=== PATIENT | female | born 1960 | race Caucasian/White ===

== ENCOUNTER 2016-11-30 18:51 | Emergency (ER) | payer BC ==
[~2016-11-30] VITALS: Ht 152.4 cm; Wt 62.0 kg
[~2016-11-30 18:51] MED LIST: ATOR10TA15 PO; CALTCHW4 CHEW; CLAR10CA3 PO; LEXA10TA PO; METF500T PO; MINO50CA PO; MULTTAB24 PO
[2016-11-30 19:00] VITALS: BP 151/93; PULSE 90; RESP 16; TEMP 98.4; O2SAT 96
[2016-11-30] MEDS ORDERED: SODIUM CHLOR 0.9% 1000 ML INJ 1,000 ML IV SCH (22:25)
[2016-11-30] MEDS ORDERED: SODIUM CHLORIDE 0.9% FLUSH 10 ML FLUSH IV FLUSH PRN (22:30)
[2016-11-30 22:32] VITALS: BP 151/93; PULSE 90; RESP 16; TEMP 98.4; O2SAT 96
--- NOTE | 2016-11-30 22:32 | PD ---
HPI Chief Complaint: Abdominal Pain Time Seen by Provider: 22:25 Travel History International Travel<30 days: No Contact w/Intl Traveler<30days: No Traveled to known affect area: No History of Present Illness HPI The patient is a 56-year-old female that complains of diffuse abdominal pain for 3 weeks. For the past week she has noted abdominal distention. She denies any nausea, vomiting, fever. She went to an urgent care center today and they told her to go the emergency room and get a CAT scan. She has a history of metformin controlled diabetes. The patient states her last bowel movement was normal and about 20 minutes ago while she was in the waiting room. She does not drink alcohol. PFSH Past Medical History Arthritis: Yes (OSTEOARTHRITIS) Depression: Yes Cancer: Yes (SKIN ON NOSE BASAL-MOHS SURGERY) Cardiovascular Problems: No High Cholesterol: Yes Diabetes: Yes (TYPE 2) Diminished Hearing: No Endocrine: No Genitourinary: No Hepatitis: No Hiatal Hernia: No Immune Disorder: No Musculoskeletal: No Neurologic: No Psychiatric: Yes (DEPRESSION) Reproductive: No Respiratory: No Immunizations Current: Yes Thyroid Disease: No Past Surgical History Abdominal Surgery: Yes ([place] WITH OOPHORECTOMY ONLY-1999) AICD: No Cardiac Surgery: No Ear Surgery: Yes (LEFT EAR GRAPH-1996) Endocrine Surgery: No Eye Surgery: No Genitourinary Surgery: No Gynecologic Surgery: Yes (HYSTERECTOMY) Hysterectomy: Yes (PARTIAL) Joint Replacement: No Oral Surgery: No Pacemaker: No Thoracic Surgery: No Other Surgery: Yes (HERNIA REPAIR INFANT) Social History Alcohol Use: No Tobacco Use: No (NEVER) Substance Use: No Allergies-Medications (Allergen,Severity, Reaction): Coded Allergies: No Known Allergies (Verified , 11/30/16) Reported Meds & Prescriptions Reported Meds & Active Scripts Active Reported Minocycline (Minocycline HCl) 50 Mg Cap 50 Mg PO BID Atorvastatin (Atorvastatin Calcium) 10 Mg Tab 10 Mg PO HS Caltrate 600+D Soft Chews (Calcium Carbonate-Cholecalciferol) 600-800 Mg-Unit Chew 1 Tab CHEW Lexapro (Escitalopram Oxalate) 10 Mg Tab 10 Mg PO DAILY Claritin (Loratadine) 10 Mg Cap 10 Mg PO DAILY Metformin (Metformin HCl) 500 Mg Tab 500 Mg PO BIDPC With meals Review of Systems Except as stated in HPI: all other systems reviewed are Neg Physical Exam Narrative GENERAL: The patient is alert, oriented 3 in minimal apparent distress with her abdominal discomfort. Her vital signs show blood pressure 151/93 but are otherwise normal. She appears well-hydrated. SKIN: Focused skin assessment warm/dry. No skin rash is noted. HEAD: Atraumatic. Normocephalic. EYES: Pupils equal and round. No scleral icterus. No injection or drainage. ENT: No nasal bleeding or discharge. Mucous membranes pink and moist. NECK: Trachea midline. No JVD. CARDIOVASCULAR: Regular rate and rhythm. No murmur appreciated. RESPIRATORY: No accessory muscle use. Clear to auscultation. Breath sounds equal bilaterally. GASTROINTESTINAL: Abdomen soft, non-tender, slightly distended. Hepatic and splenic margins not palpable. No guarding or rebound is present. MUSCULOSKELETAL: No obvious deformities. No clubbing. No cyanosis. No edema. NEUROLOGICAL: Awake and alert. No obvious cranial nerve deficits. Motor grossly within normal limits. Normal speech. PSYCHIATRIC: Appropriate mood and affect; insight and judgment normal. Data Data Last Documented VS Vital Signs Date Time Temp Pulse Resp B/P Pulse Ox O2 Delivery O2 Flow Rate FiO2 12/01/16 00:30 92 18 163/73 99 Room Air 11/30/16 22:32 98.4 Orders Complete Blood Count With Diff (11/30/16 22:25) Comprehensive Metabolic Panel (11/30/16 22:25) Lipase (11/30/16 22:25) Urinalysis - C+S If Indicated (11/30/16 22:25) Iv Access Insert/Monitor (11/30/16 22:25) Ecg Monitoring (11/30/16 22:25) Oximetry (11/30/16 22:25) Sodium Chlor 0.9% 1000 Ml Inj (Ns 1000 M (11/30/16 22:25) Sodium Chloride 0.9% Flush (Ns Flush) (11/30/16 22:30) Oral Contrast - Adult (11/30/16 22:43) Diatrizoate Liq ( Gastrobessy Liq) (11/30/16 22:57) Ondansetron Inj (Zofran Inj) (12/01/16 00:00) Ct Abd/Pel W Iv Contrast(Rout) (12/01/16 22:25) Iohexol 350 Inj (Omnipaque 350 Inj) (12/01/16 00:17) Labs Laboratory Tests Test 11/30/16 11/30/16 22:40 23:40 White Blood Count 6.1 TH/MM3 Red Blood Count 4.79 MIL/MM3 Hemoglobin 14.0 GM/DL Hematocrit 40.5 % Mean Corpuscular Volume 84.5 FL Mean Corpuscular Hemoglobin 29.3 PG Mean Corpuscular Hemoglobin 34.7 % Concent Red Cell Distribution Width 12.4 % Platelet Count 196 TH/MM3 Mean Platelet Volume 8.5 FL Neutrophils (%) (Auto) 68.9 % Lymphocytes (%) (Auto) 21.2 % Monocytes (%) (Auto) 7.3 % Eosinophils (%) (Auto) 1.8 % Basophils (%) (Auto) 0.8 % Neutrophils # (Auto) 4.3 TH/MM3 Lymphocytes # (Auto) 1.3 TH/MM3 Monocytes # (Auto) 0.4 TH/MM3 Eosinophils # (Auto) 0.1 TH/MM3 Basophils # (Auto) 0.0 TH/MM3 CBC Comment DIFF FINAL Differential Comment Sodium Level 142 MEQ/L Potassium Level 3.8 MEQ/L Chloride Level 107 MEQ/L Carbon Dioxide Level 25.6 MEQ/L Anion Gap 9 MEQ/L Blood Urea Nitrogen 20 MG/DL Creatinine 0.78 MG/DL Estimat Glomerular Filtration 76 ML/MIN Rate Random Glucose 256 MG/DL Calcium Level 9.0 MG/DL Total Bilirubin 0.3 MG/DL Aspartate Amino Transf 64 U/L (AST/SGOT) Alanine Aminotransferase 112 U/L (ALT/SGPT) Alkaline Phosphatase 115 U/L Total Protein 6.9 GM/DL Albumin 3.6 GM/DL Lipase 293 U/L Urine Color YELLOW Urine Turbidity CLEAR Urine pH 6.5 Urine Specific [place] 1.012 Urine Protein NEG mg/dL Urine Glucose (UA) 500 mg/dL Urine Ketones NEG mg/dL Urine Occult Blood NEG Urine Nitrite NEG Urine Bilirubin NEG Urine Leukocyte Esterase NEG Urine WBC 3-5 /hpf Urine Squamous Epithelial 6-8 /hpf Cells Urine Amorphous Sediment FEW Urine Bacteria OCC /hpf Urine Hyaline Casts 3-5 /lpf Urine Mucus OCC /lpf Microscopic Urinalysis Comment CULT NOT INDICATED MDM Medical Decision Making Medical Screen Exam Complete: Yes Emergency Medical Condition: Yes Medical Record Reviewed: Yes Interpretation(s) The urinalysis shows 500 glucose but is otherwise unremarkable and culture is not indicated. The complete metabolic profile shows a BUN of 20, glucose 256, GFR of 76, GOT of 64, GPT of 112 but is otherwise normal. The lipase is normal. The CT abdomen/pelvis shows no acute findings, fatty liver, hepatosplenomegaly and previous ventral hernia repair. The CBC is normal. Differential Diagnosis Small bowel obstruction, ileus, electrolyte disorder, ovarian cysts, intestinal tumor Narrative Course The patient has abdominal pain etiology undetermined. She has no fever, no nausea, no vomiting, no diarrhea but she does have some hepatosplenomegaly. For this reason I will recommend [id number] Motrin rather than Tylenol. She needs to follow-up with her primary care physician as soon as possible. She is given the results of her blood work/imaging/urine results. Diagnosis Primary Impression: Abdominal pain of unknown etiology Additional Instructions: As we discussed, take [id number] Motrin for the pain. Follow-up with your primary care physician next week. Med/Other Pt SpecificInfo: No Change to Meds Disposition: 01 DISCHARGE HOME Condition: Stable Venkatesh Cavanaugh MD Nov 30, 2016 22:32
[2016-11-30 22:40] VITALS: BP 184/89; PULSE 90; RESP 18; O2SAT 100
[2016-11-30 22:56] LABS: AUTOMATED NEUTROPHIL # 4.3 TH/MM3 (1.8-7.7); BASOPHIL % 0.8 % (0.0-2.0); EOSINOPHIL # 0.1 TH/MM3 (0-0.4); EOSINOPHIL % 1.8 % (0.0-4.0); HEMATOCRIT 40.5 % (35.0-46.0); HEMO FLAGS DIFF FINAL; LYMPH % 21.2 % (9.0-44.0); LYMPHOCYTE # 1.3 TH/MM3 (1.0-4.8); MEAN CELL VOLUME 84.5 FL (80.0-100.0); MEAN CORPUSCULAR HEMOGLOBIN 29.3 PG (27.0-34.0); MEAN CORPUSCULAR HGB CONC 34.7 % (32.0-36.0); MONO % 7.3 % (0.0-8.0); NEUT % 68.9 % (16.0-70.0); PLATELET COUNT 196 TH/MM3 (150-450); RED BLOOD COUNT 4.79 MIL/MM3 (4.00-5.30); RED CELL DISTRIBUTION WIDTH 12.4 % (11.6-17.2); WHITE BLOOD COUNT 6.1 TH/MM3 (4.0-11.0)
[2016-11-30 22:57] LABS: CHLORIDE 107 MEQ/L (98-107); POTASSIUM 3.8 MEQ/L (3.5-5.1); SODIUM (NA) 142 MEQ/L (136-145)
[2016-11-30] MEDS ORDERED: DIATRIZOATE MEGLUM/DIATRIZOATE SOD 9 ML CUP ONE (22:57)
[2016-11-30 23:01] LABS: ANION GAP 9 MEQ/L (5-15); BICARBONATE 25.6 MEQ/L (21.0-32.0); BLOOD UREA NITROGEN 20 MG/DL (7-18)
[2016-11-30 23:04] LABS: ALT (GPT) 112 U/L (10-53); AST (GOT) 64 U/L (15-37); GLOMERULAR FILTRATION RATE 76 ML/MIN (>89)
[2016-11-30 23:05] LABS: TOTAL BILIRUBIN ADULT 0.3 MG/DL (0.2-1.0)
[2016-11-30 23:07] LABS: ALKALINE PHOSPHATASE 115 U/L (45-117)
[2016-11-30 23:51] LABS: BLOOD, URINE NEG (NEG); GLUCOSE,URINE 500 mg/dL (NEG); KETONE, URINE NEG (NEG); NITRITE,URINE NEG (NEG); PH, URINE 6.5 (5.0-8.5)
[2016-11-30 23:53] VITALS: BP 200/96; PULSE 90; RESP 18; O2SAT 99
[2016-12-01] MEDS ORDERED: ONDANSETRON HCL 4 MG/2 ML VIAL IV ONE
[2016-12-01 00:01] LABS: URINE COLOR YELLOW (YELLW/STRAW)
[2016-12-01 00:02] LABS: MUCUS URINE OCC /lpf (OCC)
[2016-12-01 00:03] LABS: BACTERIA, URINE OCC /hpf
[2016-12-01 00:04] LABS: COMMENT (UR) CULT NOT INDICATED; CULTURE IF INDICATED CULT NOT INDICATED
[2016-12-01] MEDS ORDERED: IOHEXOL 350 MG/ML 10 ML VIAL (for RAD DIAG) IV ONE (00:17)
[2016-12-01 00:30] VITALS: BP 163/73; PULSE 2; PULSE 92; RESP 18; O2SAT 99
--- NOTE | 2016-12-01 00:41 | RADHPO ---
EXAM DATE/TIME: 12/01/2016 23:57 [facility] COMPARISON: No previous studies available for comparison. INDICATIONS : Abdominal pain and distention. IV CONTRAST: 100 cc Omnipaque 350 (iohexol) IV ORAL CONTRAST: Prescribed oral contrast ingested. RADIATION DOSE: 8.61 CTDIvol (mGy) MEDICAL HISTORY : Diabetes mellitus type 2. Hypertension. SURGICAL HISTORY : Hysterectomy. ENCOUNTER: Initial ACUITY: 3 weeks PAIN SCALE: 10/10 LOCATION: Bilateral lower quadrant upper quadrant TECHNIQUE: Volumetric scanning of the abdomen and pelvis was performed. Using automated exposure control and ad justment of the mA and/or kV according to patient size, radiation dose was kept as low as reasonably achievable to obtain optimal diagnostic quality images. FINDINGS: Lung bases are clear except for dependent atelectasis. There is diffuse fatty infiltration of the liver which is enlarged to 23.5 cm. Spleen is enlarged to 16.6 cm. Adrenals, kidneys and pancreas unremarkable. No free fluid. No bowel obstruction. No adenopathy. There is previous ventral hernia repair. Mild con stipation. Mild scoliosis. CONCLUSION: 1. No acute findings. Fatty liver. Hepatosplenomegaly. Previous ventral hernia repair. Garfield Luna MD on December 01, 2016 at 0:35 Board Certified Radiologist. This report was verified electronically.
== END 2016-12-01 01:22 | disposition home or self-care (01) ==
LOC: PHED 18:51
DX: E11.9 Type 2 diabetes mellitus without complications (principal); R10.9 Unspecified abdominal pain; M19.90 Unspecified osteoarthritis, unspecified site; F32.9 Major depressive disorder, single episode, unspecified; E78.00 Pure hypercholesterolemia, unspecified; Z79.4 Long term (current) use of insulin
CPT/HCPCS: 74177; 80053; 81001; 83690; 85025; 96361; 96374; 99284; J2405; J7030; Q9963; Q9967